=== PATIENT | male | born 1955 | race African-American/Black ===

== ENCOUNTER 2016-11-17 10:05 | Emergency (ER) | payer OTHER ==
[~2016-11-17] VITALS: Ht 180.3 cm; Wt 79.4 kg
[~2016-11-17 10:05] MED LIST: TAMSULOSIN HCL0.4 MG ORAL
[2016-11-17 10:09] VITALS: BP 128/79
[2016-11-17] MEDS ORDERED: DuoNeb 0.5-3(2.5)mg/3ml neb HHN ONE (10:30)
--- NOTE | 2016-11-17 11:21 | Diagnostic Imaging Report ---
Indication: SOB Technique: One view of the chest Comparison: none Findings: Lungs and pleural spaces are clear. Heart size is normal. No significant change Impression: No acute process
[2016-11-17] MEDS ORDERED: GUAIFENESIN-CO118 M1 ORAL (11:39)
[2016-11-17] MEDS ORDERED: ZITHROMAX250 MG ORAL (11:39)
[2016-11-17 11:56] VITALS: BP 135/87
[2016-11-17 12:04] VITALS: BP 135/87
--- NOTE | 2016-11-18 07:02 | Emergency Room Report ---
History of Present Illness General Chief Complaint: Upper Respiratory Illness Source: Patient Present Illness HPI Patient is a a 61-year-old male who presented after increased fever and productive cough. Patient had gradual onset of symptoms. Patient reported having a cough of yellow-brown sputum. He denied any hemoptysis. Patient states he is not a smoker. He denies prior history of pulmonary disease or heart disease. He reports having some tightness to his chest. The patient's a cough had been present for 2 days. He had been having some sore throat. He denied any history of other medical conditions. Allergies: Coded Allergies: No Known Allergies (Unverified , 11/13/15) Patient History Past Medical History: see triage record Reviewed Nursing Documentation: PMH: Agreed, PSxH: Agreed Nursing Documentation-PMH Past Medical History: No History, Except For Review of Systems All Other Systems: negative except mentioned in HPI Physical Exam Vital Signs Date Time Temp Pulse Resp B/P (MAP) Pulse Ox O2 Delivery O2 Flow Rate FiO2 11/17/16 10:09 98.2 101 18 128/79 97 Room Air 11/17/16 10:40 21 Sp02 EP Interpretation: reviewed, normal General Appearance: normal inspection, well appearing, no apparent distress, alert, GCS 15 Head: atraumatic ENT: normal ENT inspection, hearing grossly normal, normal voice Neck: normal inspection, full range of motion, supple, no bony tend Respiratory: normal inspection, no respiratory distress, no retraction, no wheezing, rhonchi - right middle lobe, speaking full sentences Cardiovascular #1: regular rate, rhythm, no edema Gastrointestinal: normal inspection, normal bowel sounds, non tender, soft, no guarding, no hernia Genitourinary: no CVA tenderness Musculoskeletal: normal inspection, back normal, normal range of motion Neurologic: normal inspection, alert, responsive, speech normal Psychiatric: normal inspection, judgement/insight normal, mood/affect normal Skin: normal inspection, normal color, no rash Medical Decision Making Diagnostic Impression: Primary Impression: Pneumonia ER Course Patient presented for cough. Differential diagnosis included but was not limited to bronchitis, pneumonia, pulmonary embolism, pericarditis, asthma, foreign body.Because of complexity of patient's case imaging studies were ordered. The patient appears to be in no respiratory distress. He is noted to have intermittent productive cough in the emergency department. The patient appears to have a pneumonia clinically however x-rays of the chest showed no evident pneumonia likely due to radiographic lag. The patient given prescription for azithromycin. He is advised followup for recheck with primary care physician in the next one to 2 days. He is advised to return if he began having worsening shortness of breath high fevers or concerns EKG Diagnostic Results Rate: normal Rhythm: NSR ST Segments: no acute changes Last Vital Signs Date Time Temp Pulse Resp B/P (MAP) Pulse Ox O2 Delivery O2 Flow Rate FiO2 11/17/16 12:04 98.2 82 17 135/87 98 Room Air 21 Status: improved Disposition: HOME, SELF-CARE Condition: Stable Scripts Guaifenesin/Codeine Phos* (ROBITUSSIN AC*) 118 Ml Liquid 1 TSP ORAL Q4H Y for For Cough, #118 ML 0 Refills Prov: Hardik Fenton 11/17/16 Azithromycin* (ZITHROMAX*) 250 Mg Tablet 250 MG ORAL DAILY, #6 TAB 0 Refills Take two tables once daily for 1 day, then one tablet once daily for 4 days. Prov: Hardik Fenton 11/17/16 Departure Forms: Return to Work Return to Work in (Days): 3 Patient Instructions: Community-Acquired Pneumonia, Adult Hardik Fenton Nov 18, 2016 07:02
--- NOTE | 2016-11-18 12:53 | Cardiology Report ---
APPROVED REPORT EKG Measurement Heart [id number] VT [id number] Normal sinus rhythm Normal ECG
== END 2016-11-17 12:00 | disposition home or self-care (01) ==
LOC: EMR 10:40
DX: J06.9 Acute upper respiratory infection, unspecified (principal); R50.9 Fever, unspecified; R05 Cough; J18.9 Pneumonia, unspecified organism
CPT/HCPCS: 71010; 93005; 94640; 94664; 99284; J7620